=== PATIENT | male | born 1970 | race Caucasian/White ===

== ENCOUNTER 2018-10-12 08:31 | Day surgery (SDC) | payer OTHER ==
[2018-10-12] MEDS ORDERED: LACTATED RINGERS 1,000 ML IV ONE (08:34)
[2018-10-12] MEDS ORDERED: fentaNYL 100 MCG/2 ML VIAL IVP ONE (09:49)
[2018-10-12] MEDS ORDERED: MIDAZOLAM 2 MG/2 ML VIAL IVP ONE (09:49)
[2018-10-12 10:24] VITALS: BP 109/72
== END 2018-10-12 08:32 | disposition home or self-care (01) ==
LOC: SDS 08:31
PROVIDERS: ATTEND Internal Medicine
PROC: 0DB68ZX Excision of Stomach, Via Natural or Artificial Opening Endoscopic, Diagnostic (ICD-10-PCS; 2018-10-12)
PROC: 0DB58ZX Excision of Esophagus, Via Natural or Artificial Opening Endoscopic, Diagnostic (ICD-10-PCS; principal; 2018-10-12 09:30)
DX: R10.13 Epigastric pain (principal); K21.9 Gastro-esophageal reflux disease without esophagitis
CPT/HCPCS: 43239; J7120

== ENCOUNTER 2019-02-21 15:20 | Outpatient (CLI) | payer OTHER | END 2019-02-21 15:21 | disposition home or self-care (01) | LOC: SC 15:20 | PROVIDERS: ATTEND Internal Medicine Pulmonary Disease | DX: R06.83 Snoring (principal); R06.81 Apnea, not elsewhere classified; G47.8 Other sleep disorders; R41.89 Other symptoms and signs involving cognitive functions and awareness; G47.10 Hypersomnia, unspecified | CPT/HCPCS: 99203; 99212 ==

== ENCOUNTER 2019-03-25 20:30 | Outpatient (CLI) | payer OTHER | END 2019-03-25 20:31 | disposition home or self-care (01) | LOC: SC 20:30 | PROVIDERS: ATTEND Internal Medicine Pulmonary Disease | DX: G47.33 Obstructive sleep apnea (adult) (pediatric) (principal); G47.61 Periodic limb movement disorder | CPT/HCPCS: 95810 ==

== ENCOUNTER 2019-04-11 15:15 | Outpatient (CLI) | payer OTHER ==
--- NOTE | 2019-04-11 16:38 | CONSULTATION NOTE ---
Information from patient questionnaire entered by Marcia Nguyen. I have reviewed and concur with the information entered by Marcia Nguyen. This document represents the service I personally performed and the decisions made by me, Dean Pierre MD, [facility]. - History of Present Illness Mr. Root returned for follow up of the sleep study he had on 03/25/19. The polysomnography showed that the patient had slightly reduced sleep efficiency due to frequent awakenings after the sleep onset. The sleep architecture was abnormal for sleep fragmentation and reduced amount of time spent in slow wave sleep (N3). Respiratory monitoring showed mild obstructive sleep apnea-hypopnea (AHI = 6.1) associated with frequent arousals, oxyhemoglobin desaturation and mild hypoxia (zahra oxygen saturation of 83%). The respiratory events occurred mainly during supine REM sleep (supine AHI = 13.0; non-supine = 1.74). Snore was moderate in intensity. There was mild periodic leg movement of sleep not contributing to the sleep fragmentation. Cardiac rhythm was normal sinus rhythm without significant arrhythmia. No abnormal behavior (parasomnia) observed during the night. The patient was informed of these findings. I explained to him the pathophysiology behind obstructive sleep apnea. We then spent quite a bit of time discussing different treatment options. For mild obstructive sleep apnea, surgery and oral appliance are alternatives to nasal CPAP therapy but in moderate or severe cases, nasal CPAP is the most effective and reliable treatment. Weight loss in an obese individual is strongly recommended. After some discussion, he opted to go with the nasal CPAP therapy. I explained to him how CPAP machine works and what to expect when using the machine. He is actually quite familiar with the treatment because his uses a CPAP. Initial [place] Sleepiness Scale score: 18 Current [place] Sleepiness Scale score: 15 - Allergies/Medications Allergies No Known Drug Allergies Allergy (Verified 10/12/18 08:47) - Review of Systems Review of systems same as previous: Yes - Impression 1. Obstructive Sleep Apnea-Hypopnea Syndrome, mild, associated with mild hypoxemia and sleep fragmentation. Obviously this is the cause of the patients symptoms of unrefreshed sleep, and excessive daytime sleepiness. As mentioned above, the patient will be started on an autoCPAP set between 5 and 15 cmH2O. Depending on his response and compliance he may be brought back for an overnight CPAP titration study. - Plan 1. Prescription made for an autoCPAP, heated humidifier, and related supplies. 2. Attempt to lose weight and avoid alcohol consumption near bedtime. 3. The patient is again cautioned about driving until his sleepiness completely resolves on the CPAP therapy. 4. Return in six weeks for follow up. I will assess his response and compliance at that time. This visit is time-based and I spent 15 minutes with the patient and more than 50% of the time was spent counseling the patient.
== END 2019-04-11 15:16 | disposition home or self-care (01) ==
LOC: SC 15:15
PROVIDERS: ATTEND Internal Medicine Pulmonary Disease
DX: G47.33 Obstructive sleep apnea (adult) (pediatric) (principal)
CPT/HCPCS: 99212; 99213

== ENCOUNTER 2019-04-29 07:41 | Outpatient (CLI) | payer OTHER ==
[2019-04-29] MEDS ORDERED: GADOBUTROL 10 MMOL/10 ML VIAL ONE (08:55)
[2019-04-29] MEDS ORDERED: GADOBUTROL 10 MMOL/10 ML VIAL IVP ONE (10:26)
--- NOTE | 2019-05-01 10:03 | MRI Report ---
Reason: Joint Disorder Procedure Date: 04/29/2019 Accession Number: [id number] / [id number] Procedure: MRI - Finger(s) LT W/WO CPT Code: FULL RESULT: EXAM: LEFT HAND MRI WITHOUT AND WITH CONTRAST EXAM DATE: 04/29/2019 10:12 AM. CLINICAL HISTORY: Joint Disorder. COMPARISON: None. TECHNIQUE: Multiplanar, multisequence T1-weighted and fluid-sensitive sequences of the hand before and after administration of intravenous contrast. IV contrast: 10 mL Gadavist given IV, no reaction. Other: None. FINDINGS: Bones: No fractures or subluxations. No marrow edema or abnormal enhancement. No bone lesions. Cartilage: The articular cartilage is unremarkable. Ligaments: The visualized collateral ligaments are intact. Tendons: The flexor and extensor tendons are unremarkable. Musculature: No edema or fatty atrophy. Other: No joint effusions or synovitis. The subcutaneous tissues are unremarkable. No abscess or cellulitis. In particular, focal area of concern marked with an MRI marker shows no lumps, nodules, masses or cystic changes. IMPRESSION: No MRI abnormalities in the hand. No MRI correlate for the patient's concern of interdigital mass. RADIA
== END 2019-04-29 07:42 | disposition home or self-care (01) ==
LOC: DI 07:41
DX: M25.842 Other specified joint disorders, left hand (principal)
CPT/HCPCS: 73220; A9585

== ENCOUNTER 2019-08-03 14:04 | Outpatient (CLI) | payer OTHER ==
[2019-08-03 15:47] VITALS: BP 122/80
--- NOTE | 2019-08-03 15:47 | SLEEP CARE CONSULTATION ---
Information from patient questionnaire entered by Marcia Nguyen. I have reviewed and concur with the information entered by Marcia Nguyen. This document represents the service I personally performed and the decisions made by me, Leila Shabazz, RN, MSN, [employer]. History of Present Illness Previous diagnosis: Mild, Obstructive Sleep Apnea-Hypopnea Syndrome AHI: 6.1 Reason for follow up: first compliance Equipment type: CPAP Equipment obtained from: [facility] Mask style: Nasal Mask brand: Resmed Backup mask available: No (keep current mask as spare when replaced ) Last cushion change: none since set up CPAP Compliance Data - Data Reviewed with Patient Average duration of nightly device use: 7.5 Compliance rate %: 100 (05/11/19-06/09/19 and 93.3% past 30 days ) Current pressure setting (cmH2O): 5-15 Humidity settin Heated hose settin Average residual AHI: 1.2 Average large leak: 1 min 24 sec Subjective Missed days of use due to: reports: other (fell asleep without CPAP ) Patient concerns: reports: air blowing in eyes (most nights - has to use eye drops. ), nasal congestion (mild but not interferring with CPAP ). denies: aerophagia, mask discomfort, mask leak noise, condensation in mask/hose, dry mouth, nose, throat, epistaxis, other Observed to snore while using device: No Current pressure setting perceived as: comfortable On therapy, patient: reports: sleeping better, awakening more refreshed, being more awake and alert during the day, more rested overall Initial [place] Sleepiness Scale score: 18 Current [place] Sleepiness Scale score: 11 Allergies and Home Medications Known drug allergies: No Home medication list reviewed: Yes Allergy and home medication list: Synthroid 25mcg tab Atorvastatin 10mg tab Lisinopril 20mg tab Omeprazole 20mg cap Review of Systems Review of systems same as previous: Yes Physical Exam Blood Pressure: 122/80 Cuff size: long Heart Rate: 94 O2 Saturation: 97 Height: 5 ft 11.5 in Weight: 254 lb 6.4 oz (boots and fatigues ) Body Mass Index: 34.9 BMI Classification: Obesity Class 1 Impression and Plan 1. Obstructive Sleep Apnea-Hypopnea Syndrome, mild, with good treatment compliance and good apnea control. On CPAP therapy, the patient has better sleep quality and is more rested overall but reports mid afternoon fatigue. I will change his CPAP pressure to [id number] as his mean pressure is 6.9cm and 90% average 8.7cmH20. He is advised to contact me if the pressure change is uncom fortable. The goal is a better sleep with less pressure adjustment. Patient advised of importance of updating mask cushion regularly to maintain seal and comfort of mask. This should reduce mask leaks into eyes. I also discussed how to adjust mask so not too tight or too loose both of which can contribute to mask leaks. He is to call [facility] to update his supplies, I also ordered this. In addition, I also showed him a CPAP pillow sample which can be used to reduce mask leaks when sleeping on his side. I explained how the mask may be shifting when sleeping on his side causing the air leaks into his eyes. This and other styles can be bought online for about $60. To protect his eyes until then, he can put eye lubricating drops in eyes before bed. He can also use a sleep mask. To reduce mid afternoon fatigue, he is advised to strive for a minimum of 7 hours of sleep. Currently averaging about 6.7 hours. Most people require 7-9 hours for optimal mental and physical function. To reduce the rebound alertness in late evening, he is to check lighting of environment and electronics as bright light can reduce the endogenous melatonin level. A warm shower before bed can also assist transition to sleep. Patient's apnea severity and rationale for treatment to reduce apnea, improve sleep quality and reduce cardiovascular and cerebrovascular events was reviewed. I also reviewed the benefit of consistent device use of CPAP for his hypertension, gastric reflux. He has noted reduced nocturnal reflux and todays blood pressure is lower than usual . Since apnea more severe supine, he is advised not to sleep on his back if unable to use his CPAP using pillows. * * Change CPAP pressure to 7-10 cmH2O * Update mask cushion. * Implement measures to reduce eye irritation * Consider CPAP pillow * Implement measures to assist transition to sleep * Notify me if snoring with mask or feeling that the pressure is too much or too little * Attempt to lose weight * Return for follow up in 3 months , or sooner if concerns arise I spent 100% of this 35 minute visit face to face with the patient with greater than 50% of this was spent time counseling the patient and coordination of care.
== END 2019-08-03 14:05 | disposition home or self-care (01) ==
LOC: SC 14:04
PROVIDERS: ATTEND Nurse Practitioner Family
DX: G47.33 Obstructive sleep apnea (adult) (pediatric) (principal); E66.9 Obesity, unspecified; Z68.34 Body mass index [BMI] 34.0-34.9, adult
CPT/HCPCS: 99212; 99214

== ENCOUNTER 2019-11-16 13:46 | Outpatient (CLI) | payer OTHER ==
[2019-11-16 15:25] VITALS: BP 118/80
--- NOTE | 2019-11-16 15:25 | SLEEP CARE CONSULTATION ---
Information from patient questionnaire entered by Marcia Nguyen. I have reviewed and concur with the information entered by Marcia Nguyen. This document represents the service I personally performed and the decisions made by me, Leila Shabazz, RN, MSN, [employer]PER[employer]. History of Present Illness Previous diagnosis: Mild, Obstructive Sleep Apnea-Hypopnea Syndrome AHI: 6.1 Reason for follow up: three month Equipment type: CPAP Equipment obtained from: [facility] Mask style: Nasal Mask brand: Resmed Backup mask available: No (keep current mask as spare when replaced ) Last cushion change: 5 days ago HPI additional information: Pressure change comfortable but not sleeping as well. However, having mask fit problems despite changing mask cushions and adjustments of mask headgear. He is washing mask cushion daily. CPAP Compliance Data - Data Reviewed with Patient Average duration of nightly device use: 6.9 Compliance rate %: 96.7 (90 days) Current pressure setting (cmH2O): 5-15 Humidity settin Heated hose settin Average residual AHI: 1.3 Average large leak: 1 min Subjective Patient concerns: reports: mask discomfort (when over tightened to reduce mask ), air blowing in eyes (throughout the night), nasal congestion (1-2 times a week ), dry mouth, nose, throat (occasional dry mouth ), other (Spouse is asking if he needs a full face mask due to him opening mouth during sleep about 1-2 times during the week. ). denies: aerophagia, mask leak noise, condensation in mask/hose, epistaxis Observed to snore while using device: Yes (occasionally ) Current pressure setting perceived as: comfortable On therapy, patient: reports: sleeping better (sleep fragmented by mask leaks. ), awakening more refreshed, being more awake and alert during the day, more rested overall. denies: drowsiness while driving Initial [place] Sleepiness Scale score: 18 Current [place] Sleepiness Scale score: 5 Allergies and Home Medications Known drug allergies: No Home medication list reviewed: Yes (no changes from last visit ) Review of Systems Review of systems same as previous: No (right shoulder injury-evaluation in process) Physical Exam Blood Pressure: 118/80 Cuff size: long Heart Rate: 90 O2 Saturation: 95 Height: 5 ft 11.5 in Weight: 263 lb (with boots and fatigues ) Weight change since last visit: gained 9 pounds Body Mass Index: 36.1 BMI Classification: Obese Impression and Plan 1. Obstructive Sleep Apnea-Hypopnea Syndrome, mild, with good treatment compliance and good apnea control. On CPAP therapy, the patient has better sleep quality and is more rested overall. The pressure was not changed as ordered. He is still requiring a similar mean and 90% average range of pressure ranging from about 7cmto about [id number]. I will not change it to range ordered at last visit as he is anticipating surgery to repair his right shoulder and may need a higher pressure range when he is using pain medications. In stead I will change to [id number] which should also reduce snoring. He is advised to contact me if the pressure change is uncomfortable. In addition, he is planning to lose about 20 pounds which may reduce his CPAP pressure range more in the future. Symptoms to report for further CPAP pressure change discussed. I reviewed BMI chart and this will bring his BMI from 36 to 33. He states he is comfortable at this weight with his muscle mass. I informed him BMI is only a guideline and getting the waist weight down will reduce health risks associated with obesity. He is to follow up with his PCP for further guidelines. For mask leak concerns, I fitted him with a Dreamwear full face mask - medium. He felt it was more comfortable than present mask. A mask specific prescription was made. Patient to contact [facility] so proper mask parts replaced. Nasal congestion can be reduced with increasing the CPAP humidity as shown on sample device. The heated hose can be adjusted higher if condensation with higher humidity setting. Saline nasal spray can also be used prior to CPAP to clear nasal secretions and wash off any nasal allergens to facilitate nasal breathing. However, patient does not thinks he needs at this time. Printed instructions given on how to change humidity and heated hose settings with rationale explaining why to change. HOpefully the above changes will reduce sleep fragmentation from mask leaks and reduce snoring. Patient's apnea severity and rationale for treatment to reduce apnea, improve sleep quality and reduce cardiovascular and cerebrovascular events was reviewed. I also reviewed the benefit of consistent device use of CPAP for hypertension, gastric reflux. Patient has noted decreased gerd symptoms with CPAP use. * Change CPAP pressure to 7-15 cmH2O * Try Dreamwear full face mask * Implement methods to reduce nasal congestion * Notify me if snoring with mask or feeling that the pressure is too much or too little * Attempt to lose weight * Call this office if any problems using CPAP * Return for follow up in 6 months, sooner if transfers , or sooner if concerns arise Mask provided: Yes Counseling Topics: Spare mask, Weight loss health impact, Weight control, Discuss weight with PCP Time Spent with Patient (minutes): 45 I spent 100% of this visit face to face with the patient with greater than 50% of this was spent time counseling the patient and coordination of care.
== END 2019-11-16 13:47 | disposition home or self-care (01) ==
LOC: SC 13:46
PROVIDERS: ATTEND Nurse Practitioner Family
DX: G47.33 Obstructive sleep apnea (adult) (pediatric) (principal); E66.9 Obesity, unspecified; Z68.36 Body mass index [BMI] 36.0-36.9, adult
CPT/HCPCS: 99212; 99215

== ENCOUNTER 2019-11-28 13:31 | Outpatient (CLI) | payer OTHER ==
--- NOTE | 2019-11-28 16:17 | MRI Report ---
Reason: PAIN IN RT SHLDR Procedure Date: 11/28/2019 Accession Number: [id number] / [id number] Procedure: MRI - Shoulder RT W/O CPT Code: Final Report FULL RESULT: EXAM: RIGHT SHOULDER MRI WITHOUT CONTRAST EXAM DATE: 11/28/2019 02:54 PM. CLINICAL HISTORY: Pain in right shoulder. COMPARISON: None. TECHNIQUE: Multiplanar, multisequence T1-weighted and fluid-sensitive sequences of the shoulder without contrast. Other: None. FINDINGS: Rotator cuff: Small amount of patchy increased T2 signal involving the distal supraspinatus and upper subscapularis. There may be tiny foci of distal intrasubstance tear. Some degree of supraspinatus bursal surface fraying. No evidence of a high-grade or full-thickness rotator cuff tear. No rotator cuff muscle atrophy or fatty replacement. Long head biceps tendon: Intact demonstrating normal course, signal and morphology. Labrum: Intact. No tear is identified. Bones and articular surfaces: No significant articular cartilage defects are seen. Acromioclavicular joint: Moderate degenerative change. Type II acromion. Lateral acromial downsloping. There may be some impingement on the distal anterior fibers of the supraspinatus. IMPRESSION: 1. Mild supraspinatus and subscapularis tendinosis. 2. Moderate degenerative change at the acromioclavicular joint. RADIA
== END 2019-11-28 13:32 | disposition home or self-care (01) ==
LOC: DI 13:31
DX: M19.011 Primary osteoarthritis, right shoulder (principal); M75.91 Shoulder lesion, unspecified, right shoulder

== ENCOUNTER 2020-04-22 12:42 | Outpatient (CLI) | payer OTHER ==
[2020-04-22 13:39] VITALS: BP 140/100
--- NOTE | 2020-04-22 13:39 | SLEEP CARE CONSULTATION ---
Information from patient questionnaire entered by Vivian Garcia. I have reviewed and concur with the information entered by Vivian Garcia. This document represents the service I personally performed and the decisions made by me, Leila Shabazz, RN, MSN, [employer]. History of Present Illness Service Date and Time: 04/22/2020 1242 Previous diagnosis: Mild, Obstructive Sleep Apnea-Hypopnea Syndrome AHI: 6.1 Reason for follow up: other (5 month) Equipment obtained from: [employer] (getting supplies as needed.) Mask style: Nasal (over the nose mask style) Backup mask available: Yes (old mask ) Last cushion change: a few days ago - changes every 2 weeks and washes daily. Prior sleep studies: Yes Year and Where: 2018 [facility] Type of Sleep Study: Polysomnography HPI additional information: Moving to [place] next week with transfer. New full face mask more comfortable to patient to patienrt but more mask leaks per spouse. He was unable to proceed to have shoulder surgery due to Covid 19 pandemic. He will follow up on treatment after transfer. No weight loss either as planned. CPAP Compliance Data - Data Reviewed with Patient Average duration of nightly device use: 6 Hr 56 min Compliance rate %: 98.3 Current pressure setting (cmH2O): [id number] Humidity settin Heated hose settin Average residual AHI: 1.0 (mean 7.0H20 / 90% 8.9cmH20) Average large leak: 1 minute 22 seconds Subjective Patient concerns: reports: air blowing in eyes (1-2 times a week), mask leak noise (1-2 times a week ), nasal congestion (seasonally / does not interfer with use of CPAP. ). denies: aerophagia, mask discomfort, condensation in mask/hose, dry mouth, nose, throat, epistaxis, other Observed to snore while using device: Yes (sometimes - unknown if due to mask ) Current pressure setting perceived as: too low On therapy, patient: reports: sleeping better, awakening more refreshed, being more awake and alert during the day, more rested overall. denies: drowsiness while driving Initial [place] Sleepiness Scale score: 18 Current [place] Sleepiness Scale score: 7 Allergies and Home Medications Known drug allergies: No Home medication list reviewed: No (no changes ) Review of Systems Review of systems same as previous: Yes Physical Exam Blood Pressure: 140/100 Cuff size: long Heart Rate: 85 O2 Saturation: 96 Height: 5 ft 11.5 in Weight: 266 lb (with fatigues and boots) Body Mass Index: 36.6 BMI Classification: Obese Impression and Plan 1. Obstructive Sleep Apnea-Hypopnea Syndrome, mild , with g00d treatment compliance and good apnea control. On CPAP therapy, the patient has better sleep quality and is more rested overall. For air hunger, I will increase the pressure of his autoCPAP tpo 7cmH20 start which is the mean pressure. I will keep the top pressure at [id number] as it is unknown when he will have his future surgery scheduled. He is to call me if the pressure change does not resolve air hunger or snore or if uncomfortable. I will also have staff see if can be changed in office as this is pressure range ordered at last visit. To reduce mask leaks, he is advised to slightly adjust mask tighter. In addition, he can consider a CPAP pillow as discussed. Nasal congestion can be reduced with increasing the CPAP humidity as shown on sample device. The heated hose can be adjusted higher if condensation with higher humidity setting. He can also use his saline nasal spray sample can also be used prior to CPAP to clear nasal secretions and wash off any nasal allergens to facilitate nasal breathing. In addition, a steamy shower before bed will often assist nasal drainage. Transfer process discussed to new sleep provider for continuity of care after he establishes care with new PCP. If he were continuing here his follow up would be one year. Patient advised to strive for a referral in aout 3 months to ensure he has access to a provider if he needs anything such as update of supplies. Patient's apnea severity and rationale for treatment to reduce apnea, improve sleep quality and reduce cardiovascular and cerebrovascular events was reviewed. I also reviewed the benefit of consistent device use of CPAP for hypertension. Since patient has more severe apnea in supine position, patient advised to avoid supine sleep with pillow positioning if unable to use CPAP while ill or if without electricity to reduce apnea risk. 2. elevated blood pressure, Patient monitors at home intermittently and generally 130/80. He is to retake later today when rested and contact PCP if still elevated. Health risks of untreated hypertension reviewed and usual guidelines for goals. * Changeauto CPAP pressure to 7-15 cmH2O * Implement methods to reduce mask leaks and nasal congestion. * Notify me if snoring with mask or feeling that the pressure is too much or too little * Attempt to lose weight * Call this office if any problems using CPAP * Return for follow up as needed before move , or sooner if concerns arise Visit Type: In Office Time Spent with Patient (minutes): 36 Provider Statement: I spent 100% of the Face to Face Visit with the patient with greater than 50% spent counseling the patient and coordination of care.
== END 2020-04-22 12:43 | disposition home or self-care (01) ==
LOC: SC 12:42
PROVIDERS: ATTEND Nurse Practitioner Family
DX: G47.33 Obstructive sleep apnea (adult) (pediatric) (principal); E66.9 Obesity, unspecified; Z68.36 Body mass index [BMI] 36.0-36.9, adult; I10 Essential (primary) hypertension
CPT/HCPCS: 99212; 99214